=== PATIENT | female | born 1990 | race Caucasian/White ===

== ENCOUNTER → 2021-07-23 10:36 | Outpatient (CLI) | payer OTHER, SELFPAY ==
[2021-07-23 17:04] LABS: Rubella Antibody IgG 79.4 IU/mL (>15)
[2021-07-24 07:36] LABS: Hepatitis B Surf Ab Qualitativ Reactive (.)
[2021-07-24 09:27] LABS: Rubeola Measles IgG > 300.0 AU/mL (Immune >16.4)
== END ==
PROVIDERS: PCP Family Medicine; Referring Provider Family Medicine; Visit Provider Family Medicine
DX: Z78.9 Other specified health status (principal); Z01.84 Encounter for antibody response examination
CPT/HCPCS: 36415; 86706; 86735; 86762; 86765

== ENCOUNTER → 2021-07-30 13:04 | Outpatient (CLI) | payer OTHER, SELFPAY ==
[2021-07-30 13:54] LABS: Add Manual Diff / Slide Review NO; Basophils Absolute Auto 100 /uL (0-100); Basophils Percent Auto 1.4 % (0-2); Eosinophils Absolute Auto 200 /uL (0-450); Eosinophils Percent Auto 4.6 % (2-4); Hematocrit 42.8 % (36-46); Hemoglobin 14.5 g/dL (12.0-16.0); Lymphocytes Absolute Auto 1500 /uL (1100-4500); Mean Corpuscular HGB Conc 33.9 % (30-36); Mean Corpuscular Hemoglobin 29.4 PG (26-34); Mean Corpuscular Volume 86.8 fL (80-100); Monocytes Absolute Auto 300 /uL (0-900); Neutrophils Absolute Auto 3100 /uL (1500-7000); Platelet Count 259 X10^3/uL (150-400); Red Blood Cell Count 4.94 X10^6/uL (4.0-5.2); Red Cell Distribution Width 12.9 % (11.6-14.8); White Blood Cell Count 5.2 X10^3/uL (4.5-11.0)
[2021-07-30 14:22] LABS: Alanine Aminotransferase 21 IU/L (<35); Albumin 4.8 g/dL (3.5-5.0); Albumin Globulin Ratio 1.7 (1.0-2.8); Alkaline Phosphatase 50 U/L (38-126); Aspartate Aminotransferase 32 IU/L (14-36); BUN Creatinine Ratio 22.1 (6-22); Bilirubin Total 0.8 mg/dL (0.2-1.3); Blood Urea Nitrogen 15 mg/dL (7-17); Calcium 9.4 mg/dL (8.4-10.2); Carbon Dioxide 29 mmol/L (22-32); Chloride 102 mmol/L (98-107); Estimated Glomerular Filt Rate > 60 mL/min (>60); Globulin 2.8 g/dL (1.7-4.1); Glucose 92 mg/dL (70-100); HEMOLYSIS < 15 (0-50); Potassium 3.8 mmol/L (3.4-5.1); Sodium 138 mmol/L (137-145); Total Protein 7.6 g/dL (6.3-8.2)
[2021-07-30 14:42] LABS: TSH w/ Reflex to FT4 2.36 uIU/mL (0.47-4.68)
[2021-08-01 14:11] LABS: ANA Screen, IFA Negative (.)
== END ==
PROVIDERS: PCP Family Medicine; Referring Provider Family Medicine; Visit Provider Family Medicine
DX: F41.9 Anxiety disorder, unspecified (principal); F90.0 Attention-deficit hyperactivity disorder, predominantly inattentive type; R53.82 Chronic fatigue, unspecified
CPT/HCPCS: 36415; 80053; 84443; 85025; 86038

== ENCOUNTER → 2021-08-02 17:19 | Outpatient (CLI) | payer OTHER, SELFPAY ==
[2021-08-03 09:16] LABS: Varicella IgG Antibody 942 index (Immune >165)
== END ==
PROVIDERS: PCP Family Medicine; Referring Provider Family Medicine; Visit Provider Family Medicine
DX: Z01.84 Encounter for antibody response examination (principal)
CPT/HCPCS: 36415; 86787

== ENCOUNTER 2022-03-10 12:39 | Emergency (ER) | payer OTHER, SELFPAY ==
--- NOTE | 2022-03-10 12:47 | DI.RAD.S_ITS ---
PROCEDURE: XR CHEST 1V INDICATIONS: chest pain TECHNIQUE: One view of the chest was acquired. COMPARISON: None. FINDINGS: Surgical changes and devices: None. Lungs and pleura: Lungs are clear. No pleural effusions or pneumothorax. Mediastinum: Mediastinal contours appear normal. Heart size is normal. Bones and chest wall: No suspicious bony lesions. Overlying soft tissues appear unremarkable. IMPRESSION: No acute radiographic abnormality. Dictated by: Sudhakar Ontiveros M.D. on 03/10/2022 at 12:40 Approved by: Sudhakar Ontiveros M.D. on 03/10/2022 at 12:40
[2022-03-10 12:53] VITALS: BP 157/85; PULSE 71; RESP 18; TEMP 36.9; O2SAT 100
[2022-03-10 13:19] VITALS: PULSE 73; O2SAT 100
[2022-03-10 13:20] VITALS: BP 129/90; PULSE 101; O2SAT 99
[2022-03-10 13:20] LABS: Add Manual Diff / Slide Review NO; Basophils Absolute Auto 0 /uL (0-100); Basophils Percent Auto 0.8 % (0-2); Eosinophils Absolute Auto 200 /uL (0-450); Eosinophils Percent Auto 3.5 % (2-4); Hematocrit 44.3 % (36-46); Hemoglobin 15.5 g/dL (12.0-16.0); Lymphocytes Absolute Auto 2000 /uL (1100-4500); Lymphocytes Percent Auto 33.6 % (25-40); Mean Corpuscular HGB Conc 34.9 % (30-36); Mean Corpuscular Hemoglobin 30.2 PG (26-34); Mean Corpuscular Volume 86.6 fL (80-100); Monocytes Absolute Auto 400 /uL (0-900); Monocytes Percent Auto 6.5 % (3-14); Neutrophils Absolute Auto 3300 /uL (1500-7000); Neutrophils Percent Auto 55.6 % (50-75); Platelet Count 296 X10^3/uL (150-400); Red Blood Cell Count 5.11 X10^6/uL (4.0-5.2); Red Cell Distribution Width 12.6 % (11.6-14.8); White Blood Cell Count 5.9 X10^3/uL (4.5-11.0)
[2022-03-10 13:22] LABS: INR 1.1 (0.9-1.3); Prothrombin Time 12.5 SECONDS (10.1-12.7)
[2022-03-10 13:25] LABS: PTT Partial Thromboplastin Tim 31 SECONDS (26-36)
[2022-03-10 13:30] VITALS: BP 115/78; PULSE 90; RESP 34; O2SAT 99
--- NOTE | 2022-03-10 13:33 | PC.NURSE ---
history of panic attacks, breast implants, familial cardiac problems. pt states she has been feeling a pressure like feeling, like someone is poking her in the chest for the last week. every time this happens, she ends up sitting down, resting and taking deep breathes to calm herself down and she feels relief. pt states this might be related to her anxiety but she is worried about her heart since her family has extensive history. pt is also worried about her breast implants and the possiblity that they might have 'gone bad'. she was reading some articles that state her symptoms would be like that of a heart attack.
--- NOTE | 2022-03-10 13:39 | ED.SOB ---
HPI - SOB/Dyspnea General Chief Complaint: Shortness of Breath/Dyspnea Stated Complaint: Tightening chest, 113 heartrate, SOB- 1 week Time Seen by Provider: 03/10/22 13:18 Source: patient Mode of arrival: Ambulatory Limitations: no limitations History of Present Illness HPI Narrative: Patient is a 31-year-old female history of anxiety presenting today with her palpitations. She says over last couple of weeks she is had intermittently high blood pressures. She has felt her heart beating fast at times as well some intermittent shortness of breath. She is a pulse oximeter at home her heart rate has been as high as 113. She is scheduled to have an outpatient Holter monitor but that has not been arranged yet due to insurance problems. Today she felt some more palpitation she wanted to go to the walk-in clinic where they sent her to the ER. She is no fever chills nausea vomiting she is not passed out. No prior history of DVT. She is not on control. She is not traveled anywhere recently. She is a nonsmoker. Related Data Allergies Allergy/AdvReac Type Severity Reaction Status Date / Time No Known Drug Allergies Allergy Verified 01/08/22 16:28 Review of Systems Review of Systems Narrative: GENERAL: Denies chills, fatigue, malaise, fever, sweats, travel HEENT: Denies sinus pain, ear pain, sore throat, difficulty swallowing, neck pain RESPIRATORY: Denies dyspnea, cough, wheezing, hemoptysis, sputum. CARDIOVASCULAR: See HPI GASTROINTESTINAL: Denies nausea, vomiting, abdominal pain, diarrhea, constipation, melena. : Denies dysuria, frequency, incontinence, hematuria, urinary retention, flank pain. MUSCULOSKELETAL: Denies weakness, joint pain, or bony pain SKIN: No rash, no erythema, no pruritus NEUROLOGIC: Denies weakness, dizziness, headache, numbness, change in speech, confusion PSYCHIATRIC: No concerning psychosocial issues. 12 point review of systems is negative except for those stated above and HPI Patient History Medical History Acne (~2004) ADHD Anxiety Family hx of melanoma Fatigue Surgical History Anesthesia History of breast augmentation (~10/06/20) Family History Father Hypertension Hyperlipidemia Mental health problem Mother Diabetes mellitus Mental health problem Grandfather Cancer Diabetes mellitus Grandmother Melanoma Cancer Diabetes mellitus History of heart disease Grandfather Hyperlipidemia Hypertension Grandmother COPD (chronic obstructive pulmonary disease) Social History Smoking Status: Never smoker Smoking Status: Never smoker alcohol intake frequency: holidays/special occasions only Alcohol type: wine Substance Use Type: does not use Exam Initial Vital Signs Initial Vital Signs: Vital Signs Temperature 98.4 F 03/10/22 12:53 Pulse Rate 71 03/10/22 12:53 Respiratory Rate 18 03/10/22 12:53 Blood Pressure 157/85 H 03/10/22 12:53 Pulse Oximetry 100 03/10/22 12:53 Oxygen Delivery Method 03/10/22 12:53 GENERAL: Alert pleasant 31-year-old female and in no acute distress. HEENT: Head atraumatic,EOMI, pupils reactive, face symmetric, moist mucous membranes CARDIOVASCULAR: Regular rate and rhythm without murmurs, rubs or gallops. RESPIRATORY: Breath sounds equal bilaterally, no wheezes rales or rhonchi. ABDOMEN: Soft, nontender. Normoactive bowel sounds all 4 quadrants. No guarding or rebound. EXTREMITIES: Normal range of motion, no clubbing or edema. Neurovascularly intact NEUROLOGICAL: Alert and oriented x4.Normal gait and speech. SKIN: Warm, dry, no laceration, no petechiae, no rashes or lesions. Scores HEART Score Heart Score history: Slightly Suspicious Heart Score EKG: Normal Heart Score Age: < 45 years old Heart Score risk factors: No known risk factors Heart Score troponin: < or = to normal limit Heart Score Total: 0 PERC Score Age greater than or equal to 50 years: No Heart rate greater than or equal to 100 bpm: Yes Room Air O2 Sat less than 95%: No Unilateral leg swelling: No Recent trauma or surgery: No Hemoptysis: No Prior PE or DVT: No Hormone Use: No Total PERC Score: 1 Course Orders Ordered: ED Orders 03/10/22 12:47 XR chest 1V Stat 03/10/22 12:53 EKG-12 Lead Stat 03/10/22 13:00 Complete Blood Count AUTO DIFF Stat Comprehensive Metabolic Panel Stat D Dimer Stat Lipase Stat Magnesium Stat Partial Thromboplastin Time Stat Prothrombin Time INR Stat Troponin & CK Cardiac Panel Stat 03/10/22 14:35 COVID19 -Nasal RAPID/Pre-Proc Stat Discontinued Medications Aspirin (Aspirin 81 Mg Chew Tab) 324 mg PO NOW ONE Stop: 03/10/22 12:48 Last Admin: 03/10/22 13:55 Dose: 324 mg Documented By: NR Vital Signs Vital signs: Vital Signs - 8 hr 03/10/22 12:53 03/10/22 13:19 03/10/22 13:20 Temperature 98.4 F Pulse Rate 71 73 101 H Respiratory Rate 18 Blood Pressure 157/85 H Pulse Oximetry 100 100 99 Oxygen Delivery Method Room Air 03/10/22 13:20 03/10/22 13:30 03/10/22 13:30 Temperature Pulse Rate 90 Respiratory Rate 34 H Blood Pressure 129/90 115/78 Pulse Oximetry 99 Oxygen Delivery Method 03/10/22 14:00 03/10/22 14:00 03/10/22 14:51 Temperature Pulse Rate 73 75 Respiratory Rate 25 H 18 Blood Pressure 109/84 111/77 Pulse Oximetry 98 98 Oxygen Delivery Method Room Air MDM - SOB/Dyspnea Lab Data Result diagrams: 03/10/22 13:00 03/10/22 13:00 Labs: Lab Results 03/10/22 03/10/22 03/10/22 Range/Units 13:00 13:00 13:00 WBC 5.9 (4.5-11.0) X10^3/uL RBC 5.11 (4.0-5.2) X10^6/uL Hgb 15.5 (12.0-16.0) g/dL Hct 44.3 (36-46) % MCV 86.6 (80-100) fL MCH 30.2 (26-34) PG MCHC 34.9 (30-36) % RDW 12.6 (11.6-14.8) % Plt Count 296 (150-400) X10^3/uL Neut % (Auto) 55.6 (50-75) % Lymph % (Auto) 33.6 (25-40) % Charlton % (Auto) 6.5 (3-14) % Eos % (Auto) 3.5 (2-4) % Baso % (Auto) 0.8 (0-2) % Neut # (Auto) 3300 (0695-3430) /uL Lymph # (Auto) 2000 (2611-0701) /uL Charlton # (Auto) 400 (0-900) /uL Eos # (Auto) 200 (0-450) /uL Baso # (Auto) 0 (0-100) /uL PT 12.5 (10.1-12.7) SECONDS INR 1.1 (0.9-1.3) APTT 31 (26-36) SECONDS D-Dimer (<500) ng/ml Sodium 138 (137-145) mmol/L Potassium 3.7 (3.4-5.1) mmol/L Chloride 101 (98-107) mmol/L Carbon Dioxide 28 (22-32) mmol/L BUN 13 (7-17) mg/dL Creatinine 0.61 (0.52-1.04) mg/dL Estimated GFR > 60 (>60) mL/min BUN/Creatinine Ratio 21.3 (6-22) Glucose 98 (70-100) mg/dL Calcium 9.8 (8.4-10.2) mg/dL Magnesium 2.0 (1.6-2.3) mg/dL Total Bilirubin 1.0 (0.2-1.3) mg/dL AST 31 (14-36) IU/L ALT 23 (<35) IU/L Alkaline Phosphatase 61 (38-126) U/L Total Creatine Kinase 83 (30-135) U/L CK-MB (CK-2) TNP CK-MB (CK-2) Rel Index TNP Troponin I < 0.012 (0.01-0.034) ng/mL Total Protein 8.2 (6.3-8.2) g/dL Albumin 4.8 (3.5-5.0) g/dL Globulin 3.4 (1.7-4.1) g/dL Albumin/Globulin Ratio 1.4 (1.0-2.8) Lipase 182 (23-300) U/L SARS-CoV-2 (PCR) (Negative) 03/10/22 03/10/22 Range/Units 13:00 14:35 WBC (4.5-11.0) X10^3/uL RBC (4.0-5.2) X10^6/uL Hgb (12.0-16.0) g/dL Hct (36-46) % MCV (80-100) fL MCH (26-34) PG MCHC (30-36) % RDW (11.6-14.8) % Plt Count (150-400) X10^3/uL Neut % (Auto) (50-75) % Lymph % (Auto) (25-40) % Charlton % (Auto) (3-14) % Eos % (Auto) (2-4) % Baso % (Auto) (0-2) % Neut # (Auto) (0641-4325) /uL Lymph # (Auto) (6539-3806) /uL Charlton # (Auto) (0-900) /uL Eos # (Auto) (0-450) /uL Baso # (Auto) (0-100) /uL PT (10.1-12.7) SECONDS INR (0.9-1.3) APTT (26-36) SECONDS D-Dimer 275 (<500) ng/ml Sodium (137-145) mmol/L Potassium (3.4-5.1) mmol/L Chloride (98-107) mmol/L Carbon Dioxide (22-32) mmol/L BUN (7-17) mg/dL Creatinine (0.52-1.04) mg/dL Estimated GFR (>60) mL/min BUN/Creatinine Ratio (6-22) Glucose (70-100) mg/dL Calcium (8.4-10.2) mg/dL Magnesium (1.6-2.3) mg/dL Total Bilirubin (0.2-1.3) mg/dL AST (14-36) IU/L ALT (<35) IU/L Alkaline Phosphatase (38-126) U/L Total Creatine Kinase (30-135) U/L CK-MB (CK-2) CK-MB (CK-2) Rel Index Troponin I (0.01-0.034) ng/mL Total Protein (6.3-8.2) g/dL Albumin (3.5-5.0) g/dL Globulin (1.7-4.1) g/dL Albumin/Globulin Ratio (1.0-2.8) Lipase (23-300) U/L SARS-CoV-2 (PCR) Negative (Negative) Imaging Data Chest x-ray: Radiologist's Impression: [address] [address] XRay Report Signed Patient: Jennifer French MR#: [id number] : 1990 Acct:[id number] Age/Sex: 31 / F Date of Service: 03/10/22 Loc: ED Accession Number: [id number] ?? Procedure: XR chest 1V Ordering Provider: Ashley Almaraz D.O. PROCEDURE:? XR CHEST 1V ? INDICATIONS:? chest pain ? TECHNIQUE:? One view of the chest was acquired.? ? COMPARISON:? None. ? FINDINGS:? ? Surgical changes and devices:? None.? ? Lungs and pleura:? Lungs are clear.? No pleural effusions or pneumothorax.? ? Mediastinum:? Mediastinal contours appear normal.? Heart size is normal.? ? Bones and chest wall:? No suspicious bony lesions.? Overlying soft tissues appear unremarkable.? ? IMPRESSION:? No acute radiographic abnormality. ? ? Dictated by: Sudhakar Ontiveros M.D. on 03/10/2022 at 12:40 ? ECG Data Interpretation: Normal sinus rhythm rate 87 IA interval 192 QRS 100 QTC 450 no T-wave inversions , Q-wave noted in septal leads V1 and V2 only no priors to compare social does have some ST depressions V4 V5 MDM Narrative Medical decision making narrative: Patient presents today with heart palpitations some mild tachycardia. Low risk for PE she is a PERC score of 1 D-dimer is negative this is unlikely PE. Low risk heart score of 0. She does not have any risk factors. Blood work is overall reassuring EKG does not show any changes. Chest x-ray. I do recommend outpatient Holter monitor at this point which is being arranged with her primary care provider. At this time there is no need for any further testing. Outpatient follow-up. Discharge Plan Departure Patient Disposition: Home Clinical Impression: Heart palpitations Instructions: DI for Arrhythmias Activity Restrictions/Additional Instructions: *You have been diagnosed with palpitations *What to do: At this time your blood work is overall reassuring. I do agree with outpatient cardiac monitor technician when able. *Continue to take medications as directed *Follow up with your primary care provider in 2-3 days or call [phone] *Return to ER if you should have increased chest pain palpitations dizziness or any new, worsening or concerning symptoms Referrals: Janak Madrid MD [Primary Care Provider] - Visit Report Forms: Patient Portal/API
[2022-03-10 13:42] LABS: Alanine Aminotransferase 23 IU/L (<35); Albumin 4.8 g/dL (3.5-5.0); Albumin Globulin Ratio 1.4 (1.0-2.8); Alkaline Phosphatase 61 U/L (38-126); Aspartate Aminotransferase 31 IU/L (14-36); BUN Creatinine Ratio 21.3 (6-22); Blood Urea Nitrogen 13 mg/dL (7-17); Calcium 9.8 mg/dL (8.4-10.2); Carbon Dioxide 28 mmol/L (22-32); Chloride 101 mmol/L (98-107); Creatine Kinase 83 U/L (30-135); Estimated Glomerular Filt Rate > 60 mL/min (>60); Globulin 3.4 g/dL (1.7-4.1); Glucose 98 mg/dL (70-100); HEMOLYSIS < 15 (0-50); Lipase 182 U/L (23-300); Potassium 3.7 mmol/L (3.4-5.1); Sodium 138 mmol/L (137-145); Total Protein 8.2 g/dL (6.3-8.2)
[2022-03-10 13:47] LABS: D Dimer 275 ng/ml (<500)
[2022-03-10 13:53] LABS: Troponin I < 0.012 ng/mL (0.01-0.034)
[2022-03-10] MEDS: ASPIRIN 81 MG CHEW TAB 324 MG PO (13:55)
[2022-03-10 14:00] VITALS: BP 109/84; PULSE 73; RESP 25; O2SAT 98
[2022-03-10 14:51] VITALS: BP 111/77; PULSE 75; RESP 18; O2SAT 98
[2022-03-10 14:57] LABS: COVID19 -Nasal RAPID Negative (Negative)
== END 2022-03-10 14:51 | disposition home or self-care (01) ==
PROVIDERS: Emergency Provider Emergency Medicine; PCP Family Medicine
DX: R00.2 Palpitations (principal); R00.0 Tachycardia, unspecified; Z20.822 Contact with and (suspected) exposure to COVID-19
CPT/HCPCS: 36415; 71045; 80053; 82550; 83690; 83735; 84484; 85025; 85379; 85610; 85730; 87635; 93005; 99284; C9803